=== PATIENT | female | born 1940 | race Caucasian/White ===

== ENCOUNTER 2020-05-11 19:49 | IRF | payer MEDICARE, SELFPAY ==
--- NOTE | ~2020-05-11 | US_ITS ---
EXAMINATION: US venous doppler LE EXAM DATE: 05/15/2020 13:34 INDICATION: Swelling, pain in legs. TECHNIQUE: Multiple grayscale, color flow and Doppler images of the lower extremity deep venous syste ms bilaterally were obtained and reviewed. There is no prior study for comparison. FINDINGS: Right side: The right common femoral, femoral and profunda veins demonstrate normal color flow, respi ratory variation, augmentation and compressibility. Compressibility, color flow confirmed within the right popliteal, posterior tibial, peroneal, and greater saphenous veins. Left side: The left common femoral, femoral and profunda veins demonstrate normal color flow, respira tory variation, augmentation and compressibility. Compressibility, color flow confirmed within the l eft popliteal, posterior tibial, peroneal, and greater saphenous veins. IMPRESSION: 1. No lower extremity deep venous thrombosis bilaterally. Reviewed, dictated and finalized at location B.
[2020-05-11 17:46] VITALS: BP 147/84; PULSE 123; RESP 24; TEMP 37.2; O2SAT 100; BMI 36.2
--- NOTE | 2020-05-11 18:04 | ADMGEN ---
This patient, Lynette Gamez, was admitted to [facility] Room 218-01. Patient/family oriented to hospital policies and general routines including ID bracelet, bed and alarms, visiting hours, pain management, procedures, bathroom and other care routines, personal items, smoking policy, room service/diet, and visiting hours. Valuables list has been completed. Information on how to activate the Rapid Response Team has been discussed. Patient/Family are encouraged to report perceived risks to care and to ask questions if they do not understand what they are told or what they should do.
[2020-05-11 21:08] VITALS: PULSE 98
[2020-05-11] MEDS: carvediloL 12.5 MG TABLET PO (21:08)
[2020-05-11 22:00] VITALS: BP 151/69; PULSE 110; RESP 18; TEMP 37.2; O2SAT 95
[2020-05-12 04:49] LABS: Basophils Percent Auto 0.4 % (0.2-1.2); Eosinophils Absolute Auto 0.1 K/mm3 (0-0.3); Eosinophils Percent Auto 0.9 % (0-4.4); Hematocrit 33.1 % (37.0-47.0); Hemoglobin 10.4 g/dL (12.0-15.0); Immature Granulocyte Absolute 0.03 K/mm3 (0.00-0.031); Immature Granulocyte Percent A 0.4 % (0-0.5); Lymphocytes Absolute Auto 0.97 K/mm3 (0.9-3.2); Lymphocytes Percent Auto 12.1 % (18.3-44.2); Mean Corpuscular HGB Conc 31.4 g/dl (32-36); Mean Corpuscular Hemoglobin 26.6 pg (26-34); Mean Corpuscular Volume 84.7 fl (80-100); Monocytes Percent Auto 12.3 % (2.6-8.5); Neutrophils Absolute Auto 5.9 K/mm3 (1.3-6.7); Neutrophils Percent Auto 73.9 % (45.5-73.1); Platelet Count Result 153 k/mm3 (150-375); Red Blood Count 3.91 M/mm3 (4.2-5.4); Red Cell Distribution Width 15.7 % (11.5-14.5)
[2020-05-12 05:00] LABS: Anion Gap 5 mmol/L (8-16); Blood Urea Nitrogen 23 mg/dL (7-17); Calcium 8.2 mg/dL (8.4-10.2); Carbon Dioxide 31 mmol/L (22-30); Chloride 98 mmol/L (98-107); Estimated CRCL calculation 58 ml/min; Estimated Glomerular Filt Rate > 60; Glucose 115 mg/dL (65-105); Potassium 3.8 mmol/L (3.4-5.0); Sodium 134 mmol/L (137-145)
[2020-05-12 06:00] VITALS: BP 153/91; PULSE 104; RESP 20; TEMP 36.7; O2SAT 92
[2020-05-12 09:33] VITALS: PULSE 96
[2020-05-12] MEDS: APIXABAN 5 MG TABLET PO ×2 (09:33→17:21)
[2020-05-12] MEDS: FUROSEMIDE 40 MG TABLET PO (09:33)
[2020-05-12] MEDS: LOSARTAN POTASSIUM 25 MG TABLET PO (09:33)
[2020-05-12] MEDS: POTASSIUM CHLORIDE 20 MEQ TABLET.ER PO (09:33)
[2020-05-12] MEDS: carvediloL 12.5 MG TABLET PO ×2 (09:33→20:10)
--- NOTE | 2020-05-12 11:30 | WPDREHABHP ---
H&P: HPI History of Present Illness Date/Time: 05/12/20 14:02 Chief complaint: acute chf exac Narrative: Lynette Gamez is a 79 year old female HISTORY OF PRESENT ILLNESS: The patient's primary rehab impairment category is 14 - cardiac The etiologic diagnosis is acute congestive heart failure I saw this patient [id number] on May 12, 2020 at 11:00 a.m. The patient is a 79-year-old woman who has not been evaluated by a physician over 50 years with no recorded past medical history. The patient presented to [facility] emergency department on May 06, 2020 with complaints of shortness of breath orthopnea and worsening bilateral lower extremity edema 3+ pitting edema. Lab work revealed sodium 129 WBC 43874 alk-phos 138 AST 41 bilirubin 1.4 and BNP 10 40. She was found to be in AFib with rapid ventricular response with heart rate in the 160s a chest x-ray showed cardiomegaly with pulmonary densities the appearance is consistent with congestive heart failure and pulmonary edema. The patient was placed on IV Cardizem Lasix and heparin drip. Cardiology was consulted and she responded well to IV diuresis. The patient had an unresponsive episode May 09 while sitting in the chair. The head CT showed no evidence of an acute intracranial process. The attending provider attributed the episode to a TIA. The patient complained of pain and decreased mobility in her right knee which he still does. The patient any x-ray showed severe degenerative changes and arthritis. The patient required physician monitoring for hyponatremia elevated liver enzymes fluid volume new medication management and atrial fibrillation. The atrial fibrillation is currently controlled with carvedilol. The patient will be discharged T RC and 5 milligram of Eliquis b.i.d. for the prevention of a stroke/DVT prophylaxis Head time of this examination the patient does have a what looks like a little cellulitis at the antecubital fossa of the left upper extremity and what sounds like a looks like a resolving lower extremity edema due to congestive heart failure The patient has not traveled outside the [place] are had contact with someone who is ill that has traveled outside the [place] in the past 21 days. Patient has not traveled to an area of the [place] that is experiencing no transmission of the Coronavirus and has not had close personal contact with anyone that has. The patient does not have a fever. The patient is not experiencing lower extremity illness symptoms. Therapy was initiated at the acute care facility and the patient transferred to us from [facility] on May 11, 2020 FALLS OR SURGERIES: The patient has had no major surgeries in the 100 days prior to admission. They had no falls in the past year. They had no falls with injury in the past year. PAST MEDICAL HISTORY: the patient has not seen a physician for over half a century PAST SURGICAL HISTORY: none SOCIAL HISTORY: [] the patient is and lives alone. The patient lives in a one-story home with 3 to 4 steps to enter. She was independent with all ADLs, IADLs LEs, mobility without assistive device, and driving. She would like to return home immediately or independently. She has good support from the family members multiple and her point of contact is her daughter Rose freeman FAMILY HISTORY: mother had a history of hypertension and stroke. Father had emphysema, COPD and heart failure PRIOR LEVEL OF FUNCTION: Eating was INDEPENDENT Oral Care was INDEPENDENT Toileting Hygiene was INDEPENDENT Shower/Bathing was INDEPENDENT Upper Body Dressing was INDEPENDENT Lower Body Dressing was INDEPENDENT Donning/[place] Footwear was INDEPENDENT Rolling Left and Right was INDEPENDENT Sit to Lying was INDEPENDENT Lying to Sitting was INDEPENDENT Sit to Stand was INDEPENDENT Bed to Chair Transfers was INDEPENDENT Toilet Transfers was INDEPENDENT Walking was
[2020-05-12 12:55] VITALS: BMI 36.2
[2020-05-12 14:00] VITALS: BP 146/78; PULSE 94; RESP 18; TEMP 36.5; O2SAT 97
[2020-05-12] MEDS: SIMETHICONE 80 MG TAB.CHEW PO ×3 (15:47→20:10)
[2020-05-12 20:10] VITALS: PULSE 76
[2020-05-12] MEDS: TOLNAFTATE 1% POWDER 45 GM BTL 1 APPLIC TOPICAL (20:12)
[2020-05-12 22:00] VITALS: BP 164/88; PULSE 97; RESP 20; TEMP 36.9; O2SAT 100
[2020-05-13] VITALS (7 sets, daily range): BP systolic 107–161; BP diastolic 61–98; PULSE 70–113; RESP 18–22; TEMP 36–36.7; O2SAT 92–96
[2020-05-13] MEDS: APIXABAN 5 MG TABLET PO ×2 (08:56→17:19)
[2020-05-13] MEDS: POTASSIUM CHLORIDE 20 MEQ TABLET.ER PO (08:56)
[2020-05-13] MEDS: FUROSEMIDE 40 MG TABLET PO (08:56)
[2020-05-13] MEDS: LOSARTAN POTASSIUM 25 MG TABLET PO (08:56)
[2020-05-13] MEDS: carvediloL 12.5 MG TABLET PO ×2 (08:56→22:07)
[2020-05-13] MEDS: TOLNAFTATE 1% POWDER 45 GM BTL 1 APPLIC TOPICAL ×2 (08:57→22:07)
[2020-05-13] MEDS: SIMETHICONE 80 MG TAB.CHEW PO ×4 (08:57→22:07)
--- NOTE | 2020-05-13 10:37 | RPD ---
INDIVIDUALIZED PLAN OF CARE FOR Lynette Gamez Brief Synthesis of Pre-Admission Screen, Post-Admission Evaluation and Therapy Evaluations: The patient presents to rehab with acute congestive heart failure. Comorbidities include hypertension, new onset of rapid atrial fibrillation, pulmonary edema, EF 25-30%leukocytosis, hyponatremia, bilateral lower extremity pitting +edema, elevated liver enzymes, hepatic congestion, orthopenia, and right knee pain. The complexity of the patient's medical management, nursing, and therapy needs require an inpatient rehab hospital stay with a physician-led interdisciplinary team approach. The patient?s needs will be best met in an intensive program vs. at a lower level of care. The patient requires physician services for medical oversight and coordination of care. The patient requires physician monitoring for hyponatremia, elevated liver enzymes, fluid volume, new medication management and atrial fibrillation. The patient requires nursing services for anticoagulation therapy, medication management and education, pressure relief and skin care management, monitoring of labs, bowel and bladder training, and fall/safety precautions. Deficits include:ADLs, Balance, Endurance, Family Training/Education, Mobility, Pain Management, ROM, Safety, Strength, and Transfers Meat Process Worker/Case Management for: Discharge Planning and Patient/Family Counseling Physical Therapy: 5 days per week for 90 minutes. Treatments may include: Therapeutic Exercise, Gait Training, Neuromuscular Re-education, Transfer Training, Community Reintegration, Bed Mobility, Patient/Family Education, Wheelchair Mobility Group Therapy/Concurrent Therapy Rationales: -Improve attention span during functional activities in a distracted environment. -Enhance problem solving and/or adequate judgment skills during functional activities in a distracted environment. -Promote increased safety awareness in a distracted environment to reduce fall risk with functional tasks, transfers, and ambulation to allow a more safe, self-sufficient return to the home environment. -Improve dynamic balance skills to promote safety and independence with functional activities in a distracted environment for maximum gain. Occupational Therapy: 5 days per week for 90 minutes. Treatments may include: Therapeutic Exercise, Therapeutic Activity, Cognitive Training, Self-Care Transfer Training, Community Reintegration, Home Management, Patient/Family Education, Wheelchair Mobility Training, Energy Conservation Training Group Therapy/Concurrent Therapy Rationales: -Allow therapist to observe and teach generalization and carry-over of skills learned in individual therapy. -Enhance problem solving and sequencing skills during therapeutic activities in a distracted environment. -Promote increased safety awareness in a realistic setting to reduce fall risk with functional tasks due to visual and verbal distractions. -Increase functional level with ADLs, ADL transfers and use of adaptive equipment through therapeutic activities with others while promoting safety to allow a more safe, self-sufficient return home. Medical Prognosis: Good Anticipated Length of Stay: 12 days Rehab Goals: Eating Goal: 06-Independent Oral Hygiene Goal: 06-Independent Toileting Hygiene Goal: 06-Independent Shower/Bathe Self Goal: 06-Independent Upper Body Dressing Goal: 06-Independent Lower Body Dressing Goal: 06-Independent Putting On/Taking Off Footwear Goal: 06-Independent Rolling Left and Right Goal: 06-Independent Sit to Lying Goal: 06-Independent Lying to Sitting on Side of Bed Goal: 06-Independent Sit to Stand Goal: 06-Independent Chair/Uvh-ow-Pegrw Transfer Goal: 06-Independent Toilet Transfer Goal: 06-Independent Car Transfer Goal: 06-Independent Walk 10' Goal: 06-Independent Walk 50' with Two Turns Goal: 06-Independent Walk 150' Goal: 06-Independent Walk 10' on Uneven Surface Goal: 06-Independent 1 Step (C
[2020-05-13] MEDS: ACETAMINOPHEN 500 MG TABLET 1000 MG PO (11:04)
--- NOTE | 2020-05-13 11:33 | WPDNEURORHBP ---
Subjective Date/time seen: 05/13/20 11:33 Interval history: this 79-year-old who has not seen a physician until the recent hospitalization at [place] for decades is here because of acute congestive heart failure and also found to have atrial fibrillation for which she is Eliquis she is doing fairly well the cellulitic area at the left antecubital fossa looks clean the lower extremity swelling remains stable she denies any headache nausea vomiting chest pain shortness of breath fever chills sore throat Review of Systems Review of Systems: All systems reviewed & are unremarkable except as noted in HPI and below Functional Status Ambulation Ability Ability to Ambulate 10 Feet: Contact Guard Ability to Ambulate 50 Feet With 2 Turns: Contact Guard Ability to Ambulate 150 Feet: Contact Guard Ambulation Assistive Devices: Walker, Wheeled Transfers Ability Ability to Transfer In/Out of Chair: Minimum Assistance X 1 Exam Const: General: comfortable and no acute distress HENMT: General nose exam: Normal nares present Mouth: Yes moist mucous membranes Eyes: General: appearance normal, both eyes and all related structures Neck: Neck: supple and no JVD Resp: Effort & Inspection: normal respiratory effort Auscultation: clear to auscultation bilaterally Cardio: Rate: regular rate Rhythm: regular rhythm GI: GI Palp: Yes Soft to palpation Auscultation: normal bowel sounds Skin: General skin exam: normal color and no rashes or lesions noted Neuro: Other: patient is awake and alert well oriented and apart from the generalized weakness related to the diagnosis of acute congestive heart failure she does not have any lateralizing focal motor deficit she is needing assistance in the all the activities of daily living Extrem: Other: 2+ edema of the lower extremities Psych: Mental Status: mental status grossly normal Objective Data Vital Signs Vital Signs: Vital Signs - 24 hr 05/12/20 14:00 05/12/20 20:10 05/12/20 22:00 Temperature 36.5 C 36.9 C Pulse Rate 94 76 97 Respiratory Rate 18 20 Blood Pressure 146/78 H 164/88 H Pulse Oximetry 97 100 05/13/20 05:45 05/13/20 08:56 Temperature 36.6 C Pulse Rate 109 H 109 H Respiratory Rate 22 H Blood Pressure 161/98 H Pulse Oximetry 92 Intake/Output Intake/Output: Intake & Output 05/10/20 05/11/20 05/12/20 05/13/20 23:59 23:59 23:59 23:59 Intake Total 480 240 Balance 480 240 Meds/Results Medications: Active Medications Generic Name Dose Route Start Last Admin Trade Name Konstantin PRN Reason Stop Dose Admin Acetaminophen 1,000 mg 05/13/20 10:17 05/13/20 11:04 Tylenol Tablet PO 1,000 mg Q6H PRN Administration Pain Apixaban 5 mg 05/12/20 09:00 05/13/20 08:56 Eliquis PO 5 mg BID YAEL Administration Carvedilol 12.5 mg 05/11/20 21:00 05/13/20 08:56 Coreg PO 12.5 mg Q12HR YAEL Administration Furosemide 40 mg 05/12/20 09:00 05/13/20 08:56 Lasix Tablet PO 40 mg DAILY YAEL Administration Levofloxacin 250 mg 05/13/20 09:00 05/13/20 08:56 Levaquin Tab PO 05/18/20 09:01 250 mg DAILY YAEL Administration Losartan Potassium 25 mg 05/12/20 09:00 05/13/20 08:56 Cozaar PO 25 mg DAILY YAEL Administration Miconazole Nitrate 1 applic 05/12/20 21:00 05/13/20 08:56 Aloe [place] TOPICAL 1 applic Q12HR YAEL Administration Potassium Chloride 20 meq 05/12/20 09:00 05/13/20 08:56 Kcl Tablet PO 20 meq DAILY YAEL Administration Simethicone 80 mg 05/12/20 13:00 05/13/20 08:57 Mylicon PO 80 mg QID YAEL Administration Tolnaftate 1 applic 05/12/20 21:00 05/13/20 08:57 Tolnaftate 1% Powder TOPICAL 1 applic Q12HR YAEL Administration Progress Note: A&P Assessment and Plan (1) TIA (transient ischemic attack): Code(s): G45.9 - Transient cerebral ischemic attack, unspecified Status: Acute (2) Debility: Code(s): R53.81 - Other malaise Stat
[2020-05-14 05:31] LABS: Potassium 3.7 mmol/L (3.4-5.0)
[2020-05-14 06:00] VITALS: BP 145/93; PULSE 99; RESP 20; TEMP 36.7; O2SAT 93
[2020-05-14] MEDS: ACETAMINOPHEN 500 MG TABLET 1000 MG PO ×2 (09:05→18:39)
[2020-05-14 09:06] VITALS: PULSE 99
[2020-05-14] MEDS: carvediloL 12.5 MG TABLET PO ×2 (09:06→21:12)
[2020-05-14] MEDS: APIXABAN 5 MG TABLET PO ×2 (09:06→18:37)
[2020-05-14] MEDS: SIMETHICONE 80 MG TAB.CHEW PO ×4 (09:06→21:12)
[2020-05-14] MEDS: FUROSEMIDE 40 MG TABLET PO (09:07)
[2020-05-14] MEDS: POTASSIUM CHLORIDE 20 MEQ TABLET.ER PO (09:07)
[2020-05-14] MEDS: TOLNAFTATE 1% POWDER 45 GM BTL 1 APPLIC TOPICAL ×2 (09:07→21:12)
[2020-05-14] MEDS: LOSARTAN POTASSIUM 25 MG TABLET PO (09:07)
--- NOTE | 2020-05-14 12:54 | PCNFU ---
Nutrition Follow-Up Complete: Predicted suboptimal oral intake related to poor appetite as evidenced by patient statements and recorded intake of 20%. Patient to consume 50% of meals/supplements or greater. Goal met: Patient is consuming 100% of most meals, following a Heart Healthy diet. Patient is gaining energy and regularity in appetite and intake. Patient requested decrease in protein supplement, Ensure, and benefiting from more normalized stool pattern. Ensure will remain available to her upon request, but no longer delivered with every meal. Furthermore, she demonstrates interest and motivation to continue managing and implementing beneficial dietary changes. Last recorded weight is 95.8 kg. Recommend obtaining new weight. Bowel Motility: Normal - BM x 1 per nursing flowsheet. Labs Reviewed: K+ WNL - no other new labs Meds Noted: Lasix, Levaquin, Mylicon, Kcl Tablet, Coreg, Cozaar Additional Notes: Maceration to skin folds, but no pressure ulcers Follow up in 5 days.
--- NOTE | 2020-05-14 13:41 | PCNSR ---
On 05/14/20, the student, Thais Cervantes, provided care and completed [facility] documentation on this patient. I have reviewed the student's documentation and agree with the findings.
[2020-05-14 14:00] VITALS: BP 153/84; PULSE 102; RESP 20; TEMP 36.8; O2SAT 97
[2020-05-14 20:00] VITALS: O2SAT 99
[2020-05-14 20:52] VITALS: BP 133/88; PULSE 97; RESP 14; TEMP 37; O2SAT 99
[2020-05-14 21:12] VITALS: PULSE 66
[2020-05-15 06:00] VITALS: BP 150/88; PULSE 114; RESP 18; TEMP 36.8; O2SAT 99
--- NOTE | 2020-05-15 07:55 | PCPTNOTE ---
Lynette Gamez was evaluated for a wheeled walker on 05/15/2020 by this physical therapist assistant football coach. The wheeled walker will resolve patient's mobility limitations and will be used for ADL's within the home. The patient can safely use the wheeled walker. ?The wheeled walker will resolve the patient?s mobility deficits, including decreased endurance and strength.
[2020-05-15 08:30] VITALS: PULSE 112; PULSE 130; O2SAT 96; O2SAT 97
[2020-05-15] MEDS: ACETAMINOPHEN 500 MG TABLET 1000 MG PO (08:57)
[2020-05-15 08:58] VITALS: PULSE 114
[2020-05-15] MEDS: carvediloL 12.5 MG TABLET PO ×2 (08:58→20:04)
[2020-05-15] MEDS: APIXABAN 5 MG TABLET PO ×2 (08:58→17:23)
[2020-05-15] MEDS: DOCUSATE SODIUM 100 MG CAPSULE PO ×2 (08:59→20:04)
[2020-05-15] MEDS: FUROSEMIDE 40 MG TABLET PO (08:59)
[2020-05-15] MEDS: POTASSIUM CHLORIDE 20 MEQ TABLET.ER PO (09:00)
[2020-05-15] MEDS: LOSARTAN POTASSIUM 25 MG TABLET PO (09:00)
[2020-05-15] MEDS: SIMETHICONE 80 MG TAB.CHEW PO ×4 (09:00→21:29)
--- NOTE | 2020-05-15 11:12 | WPDNEURORHBP ---
Subjective Date/time seen: 05/15/20 11:12 Interval history: this 79-year-old woman is here because of acute congestive heart failure and the atrial fibrillation recently diagnosed her swelling of the legs is bothering her and she complains of some discomfort pain although on the other hand she is on apixaban and also Lasix she denies any headache nausea vomiting chest pain shortness of breath fever chills sore throat Review of Systems Review of Systems: All systems reviewed & are unremarkable except as noted in HPI and below Functional Status Ambulation Ability Ability to Ambulate 10 Feet: Contact Guard Ability to Ambulate 50 Feet With 2 Turns: Contact Guard Ability to Ambulate 150 Feet: Contact Guard Ambulation Assistive Devices: Walker, Wheeled Transfers Ability Ability to Transfer In/Out of Chair: Minimum Assistance X 1 Exam Const: General: comfortable and no acute distress HENMT: General nose exam: Normal nares present Mouth: Yes moist mucous membranes Eyes: General: appearance normal, both eyes and all related structures Neck: Neck: supple and no JVD Resp: Effort & Inspection: normal respiratory effort Auscultation: clear to auscultation bilaterally Cardio: Rate: regular rate Rhythm: regular rhythm GI: GI Palp: Yes Soft to palpation Auscultation: normal bowel sounds Skin: General skin exam: normal color and no rashes or lesions noted Neuro: Other: patient remains awake alert well oriented in time place and person with generalized weakness needing assistance in the activities of daily living Extrem: Other: bilateral lower extremity swelling and some tenderness in the whole leg raising the possibility of a DVT Psych: Mental Status: mental status grossly normal Objective Data Vital Signs Vital Signs: Vital Signs - 24 hr 05/14/20 14:00 05/14/20 20:00 05/14/20 20:52 Temperature 36.8 C 37.0 C Pulse Rate 102 H 97 Pulse Rate [With Activity During Therapy Session] Respiratory Rate 20 14 Blood Pressure 153/84 H 133/88 Pulse Oximetry 97 99 99 Pulse Oximetry [With Activity During Therapy Session] 05/14/20 21:12 05/15/20 06:00 05/15/20 08:30 Temperature 36.8 C Pulse Rate 66 114 H 112 H Pulse Rate [With Activity During Therapy Session] 130 H Respiratory Rate 18 Blood Pressure 150/88 H Pulse Oximetry 99 96 Pulse Oximetry [With Activity During Therapy Session] 97 05/15/20 08:58 Temperature Pulse Rate 114 H Pulse Rate [With Activity During Therapy Session] Respiratory Rate Blood Pressure Pulse Oximetry Pulse Oximetry [With Activity During Therapy Session] Intake/Output Intake/Output: Intake & Output 05/12/20 05/13/20 05/14/20 05/15/20 23:59 23:59 23:59 23:59 Intake Total 480 720 720 240 Balance 480 720 720 240 Meds/Results Medications: Active Medications Generic Name Dose Route Start Last Admin Trade Name Freq PRN Reason Stop Dose Admin Acetaminophen 1,000 mg 05/13/20 10:17 05/15/20 08:57 Tylenol Tablet PO 1,000 mg Q6H PRN Administration Pain Apixaban 5 mg 05/12/20 09:00 05/15/20 08:58 Eliquis PO 5 mg BID YAEL Administration Carvedilol 12.5 mg 05/11/20 21:00 05/15/20 08:58 Coreg PO 12.5 mg Q12HR YAEL Administration Docusate Sodium 100 mg 05/15/20 09:00 05/15/20 08:59 Colace Capsule PO 100 mg Q12HR YAEL Administration Furosemide 40 mg 05/12/20 09:00 05/15/20 08:59 Lasix Tablet PO 40 mg DAILY YAEL Administration Levofloxacin 250 mg 05/13/20 09:00 05/15/20 08:59 Levaquin Tab PO 05/18/20 09:01 250 mg DAILY YAEL Administration Loratadine 10 mg 05/15/20 09:00 Claritin PO QAM YAEL Losartan Potassium 25 mg 05/12/20 09:00 05/15/20 09:00 Cozaar PO 25 mg DAILY YAEL Administration Miconazole Nitrate 1 applic 05/12/20 21:00 05/14/20 21:12 Aloe [place] TOPICAL 1 applic Q12HR YAEL Administration Potassium Chloride 20 meq 05/12/20 09:00 05/15/20 09:00 Delvin
[2020-05-15] MEDS: LORATADINE 10 MG TABLET PO (12:04)
[2020-05-15] MEDS: TOLNAFTATE 1% POWDER 45 GM BTL 1 APPLIC TOPICAL ×2 (12:05→21:29)
[2020-05-15 14:00] VITALS: BP 142/82; PULSE 94; RESP 20; TEMP 36.5; O2SAT 100
[2020-05-15 20:04] VITALS: PULSE 88
[2020-05-15 22:00] VITALS: BP 121/66; PULSE 91; RESP 18; TEMP 36.6; O2SAT 99
[2020-05-16 04:57] LABS: Potassium 3.9 mmol/L (3.4-5.0)
[2020-05-16 06:00] VITALS: BP 149/87; PULSE 106; RESP 18; TEMP 36.4; O2SAT 95
[2020-05-16 08:39] VITALS: PULSE 106
[2020-05-16] MEDS: POTASSIUM CHLORIDE 20 MEQ TABLET.ER PO (08:39)
[2020-05-16] MEDS: LOSARTAN POTASSIUM 25 MG TABLET PO (08:39)
[2020-05-16] MEDS: SIMETHICONE 80 MG TAB.CHEW PO ×4 (08:39→20:09)
[2020-05-16] MEDS: APIXABAN 5 MG TABLET PO ×2 (08:39→17:27)
[2020-05-16] MEDS: LORATADINE 10 MG TABLET PO (08:39)
[2020-05-16] MEDS: FUROSEMIDE 40 MG TABLET PO (08:39)
[2020-05-16] MEDS: carvediloL 12.5 MG TABLET PO ×2 (08:39→20:06)
[2020-05-16] MEDS: DOCUSATE SODIUM 100 MG CAPSULE PO ×2 (08:39→20:06)
[2020-05-16] MEDS: ACETAMINOPHEN 500 MG TABLET 1000 MG PO ×2 (08:43→20:07)
[2020-05-16] MEDS: TOLNAFTATE 1% POWDER 45 GM BTL 1 APPLIC TOPICAL ×2 (11:30→20:09)
--- NOTE | 2020-05-16 11:50 | WPDNEURORHBP ---
Subjective Date/time seen: 79 years old lady with ongoing history of 1. Congestive heart failure 2. Atrial fibrillation number threes edema of the lower extremities but most recent Doppler study negative for DVT. Remains involved in the physical therapy and occupational therapy. Review of Systems Review of Systems: All systems reviewed & are unremarkable except as noted in HPI and below Functional Status Ambulation Ability Ability to Ambulate 10 Feet: Standby Assistance Ability to Ambulate 50 Feet With 2 Turns: Standby Assistance Ability to Ambulate 150 Feet: Contact Guard Ambulation Assistive Devices: Walker, Wheeled Transfers Ability Ability to Transfer In/Out of Chair: Minimum Assistance X 1 Exam Narrative: Exam Narrative: Examination reveals her to be awake alert cooperative in no obvious acute distress. Ear nose throat examination normal with normal mucous membranes without any drainage. Eyes normal. Neck is supple with no cervical bruit no thyromegaly no lymphadenopathy and normal range of motion. Heart rate irregular. Lungs clear to auscultation with no crepitations or rhonchi. Abdomen is soft with no organomegaly and normal bowel sounds. His skin normal. Neurologically she is awake alert oriented in times place and person with generalized weakness requiring the assistance in the activities but otherwise symmetrical sluggish deep tendon reflexes downgoing plantar responses and normal mental status Objective Data Vital Signs Vital Signs: Vital Signs - 24 hr 05/15/20 14:00 05/15/20 20:04 05/15/20 22:00 Temperature 36.5 C 36.6 C Pulse Rate 94 88 91 Respiratory Rate 20 18 Blood Pressure 142/82 H 121/66 Pulse Oximetry 100 99 05/16/20 06:00 05/16/20 08:39 Temperature 36.4 C L Pulse Rate 106 H 106 H Respiratory Rate 18 Blood Pressure 149/87 H Pulse Oximetry 95 Intake/Output Intake/Output: Intake & Output 05/13/20 05/14/20 05/15/20 05/16/20 23:59 23:59 23:59 23:59 Intake Total 720 720 600 240 Balance 720 720 600 240 Meds/Results Medications: Active Medications Generic Name Dose Route Start Last Admin Trade Name Freq PRN Reason Stop Dose Admin Acetaminophen 1,000 mg 05/13/20 10:17 05/16/20 08:43 Tylenol Tablet PO 1,000 mg Q6H PRN Administration Pain Apixaban 5 mg 05/12/20 09:00 05/16/20 08:39 Eliquis PO 5 mg BID YAEL Administration Carvedilol 12.5 mg 05/11/20 21:00 05/16/20 08:39 Coreg PO 12.5 mg Q12HR YAEL Administration Docusate Sodium 100 mg 05/15/20 09:00 05/16/20 08:39 Colace Capsule PO 100 mg Q12HR YAEL Administration Furosemide 40 mg 05/12/20 09:00 05/16/20 08:39 Lasix Tablet PO 40 mg DAILY YAEL Administration Levofloxacin 250 mg 05/13/20 09:00 05/16/20 08:39 Levaquin Tab PO 05/18/20 09:01 250 mg DAILY YAEL Administration Loratadine 10 mg 05/15/20 09:00 05/16/20 08:39 Claritin PO 10 mg QAM YAEL Administration Losartan Potassium 25 mg 05/12/20 09:00 05/16/20 08:39 Cozaar PO 25 mg DAILY YAEL Administration Miconazole Nitrate 1 applic 05/12/20 21:00 05/15/20 20:04 Aloe [place] TOPICAL 1 applic Q12HR YAEL Administration Potassium Chloride 20 meq 05/12/20 09:00 05/16/20 08:39 Kcl Tablet PO 20 meq DAILY YAEL Administration Simethicone 80 mg 05/12/20 13:00 05/16/20 08:39 Mylicon PO 80 mg QID YAEL Administration Tolnaftate 1 applic 05/12/20 21:00 05/15/20 21:29 Tolnaftate 1% Powder TOPICAL 1 applic Q12HR YAEL Administration Radiology Results: ITS Impressions Venous Doppler Study 05/15/20 13:39 IMPRESSION: 1. No lower extremity deep venous thrombosis bilaterally. Labs Labs: Laboratory Results - last 24 hr 05/16/20 04:20 Potassium 3.9 Progress Note: A&P Assessment and Plan (1) Lower extremity edema: Code(s): R60.0 - Localized edema Status: Acute (2) TIA (transient ischemic attack): Code(
[2020-05-16 14:00] VITALS: BP 129/56; PULSE 104; RESP 18; TEMP 36.6; O2SAT 96
[2020-05-16 20:06] VITALS: PULSE 98
[2020-05-16 21:45] VITALS: BP 113/53; PULSE 95; RESP 18; TEMP 36.8; O2SAT 97
[2020-05-17 05:24] VITALS: BP 137/85; PULSE 97; RESP 18; TEMP 36.7; O2SAT 98
[2020-05-17 07:56] VITALS: PULSE 96
[2020-05-17] MEDS: APIXABAN 5 MG TABLET PO ×2 (07:56→17:40)
[2020-05-17] MEDS: DOCUSATE SODIUM 100 MG CAPSULE PO ×2 (07:56→21:14)
[2020-05-17] MEDS: carvediloL 12.5 MG TABLET PO ×2 (07:56→21:13)
[2020-05-17] MEDS: LORATADINE 10 MG TABLET PO (07:57)
[2020-05-17] MEDS: FUROSEMIDE 40 MG TABLET PO (07:57)
[2020-05-17] MEDS: SIMETHICONE 80 MG TAB.CHEW PO ×4 (07:57→21:13)
[2020-05-17] MEDS: LOSARTAN POTASSIUM 25 MG TABLET PO (07:57)
[2020-05-17] MEDS: POTASSIUM CHLORIDE 20 MEQ TABLET.ER PO (07:57)
[2020-05-17] MEDS: TOLNAFTATE 1% POWDER 45 GM BTL 1 APPLIC TOPICAL ×2 (07:59→21:14)
[2020-05-17] MEDS: ACETAMINOPHEN 500 MG TABLET 1000 MG PO (08:25)
[2020-05-17 14:00] VITALS: BP 127/49; PULSE 100; RESP 16; TEMP 36.8; O2SAT 99
[2020-05-17 21:13] VITALS: PULSE 105
[2020-05-17 22:00] VITALS: BP 138/80; PULSE 114; RESP 18; TEMP 36.8; O2SAT 98
[2020-05-18 05:24] LABS: Potassium 4.2 mmol/L (3.4-5.0)
[2020-05-18 06:00] VITALS: BP 146/95; PULSE 105; RESP 16; TEMP 36.7; O2SAT 98
[2020-05-18] MEDS: APIXABAN 5 MG TABLET PO ×2 (07:40→17:38)
[2020-05-18 07:41] VITALS: PULSE 82
[2020-05-18] MEDS: LORATADINE 10 MG TABLET PO (07:41)
[2020-05-18] MEDS: POTASSIUM CHLORIDE 20 MEQ TABLET.ER PO (07:41)
[2020-05-18] MEDS: DOCUSATE SODIUM 100 MG CAPSULE PO ×2 (07:41→20:02)
[2020-05-18] MEDS: carvediloL 12.5 MG TABLET PO ×2 (07:41→20:01)
[2020-05-18] MEDS: FUROSEMIDE 40 MG TABLET PO (07:41)
[2020-05-18] MEDS: SIMETHICONE 80 MG TAB.CHEW PO ×4 (07:42→20:01)
[2020-05-18] MEDS: LOSARTAN POTASSIUM 25 MG TABLET PO (07:42)
[2020-05-18] MEDS: TOLNAFTATE 1% POWDER 45 GM BTL 1 APPLIC TOPICAL ×2 (07:45→20:01)
--- NOTE | 2020-05-18 09:53 | WPDNEURORHBP ---
Subjective Date/time seen: 05/18/20 09:53 79 years old lady with ongoing history of 1. Congestive heart failure 2. Atrial fibrillation 3. Edema of the lower extremities with negative DVT on Doppler study continues to be involved in the physical therapy and occupational therapy Review of Systems Review of Systems: All systems reviewed & are unremarkable except as noted in HPI and below Functional Status Ambulation Ability Ability to Ambulate 10 Feet: Independent Ability to Ambulate 50 Feet With 2 Turns: Independent Ability to Ambulate 150 Feet: Contact Guard Ambulation Assistive Devices: Walker, Rollator and Walker, Wheeled Transfers Ability Ability to Transfer In/Out of Chair: Minimum Assistance X 1 Exam Narrative: Exam Narrative: examination reveals her to be awake alert cooperative in no distress ear nose throat examination normal with normal mucous membrane without any drainage eyes normal neck is supple with no cervical bruit no thyromegaly no lymphadenopathy normal range of motion heart is regular lungs clear no crepitations abdomen is soft with no organomegaly nontender normal bowel sounds skin normal neurological is she is awake alert oriented in times place and person to she complains of generalized weakness but there is no focal motor deficit she has sluggish deep tendon reflexes downgoing plantar responses and continues to have normal mental status Objective Data Vital Signs Vital Signs: Vital Signs - 24 hr 05/17/20 14:00 05/17/20 21:13 05/17/20 22:00 Temperature 36.8 C 36.8 C Pulse Rate 100 105 H 114 H Respiratory Rate 16 18 Blood Pressure 127/49 L 138/80 Pulse Oximetry 99 98 05/18/20 06:00 05/18/20 07:41 Temperature 36.7 C Pulse Rate 105 H 82 Respiratory Rate 16 Blood Pressure 146/95 H Pulse Oximetry 98 Intake/Output Intake/Output: Intake & Output 05/15/20 05/16/20 05/17/20 05/18/20 23:59 23:59 23:59 23:59 Intake Total 600 840 720 240 Balance 600 840 720 240 Meds/Results Medications: Active Medications Generic Name Dose Route Start Last Admin Trade Name Freq PRN Reason Stop Dose Admin Acetaminophen 1,000 mg 05/13/20 10:17 05/17/20 08:25 Tylenol Tablet PO 1,000 mg Q6H PRN Administration Pain Apixaban 5 mg 05/12/20 09:00 05/18/20 07:40 Eliquis PO 5 mg BID YAEL Administration Carvedilol 12.5 mg 05/11/20 21:00 05/18/20 07:41 Coreg PO 12.5 mg Q12HR YAEL Administration Docusate Sodium 100 mg 05/15/20 09:00 05/18/20 07:41 Colace Capsule PO 100 mg Q12HR YAEL Administration Furosemide 40 mg 05/12/20 09:00 05/18/20 07:41 Lasix Tablet PO 40 mg DAILY YAEL Administration Loratadine 10 mg 05/15/20 09:00 05/18/20 07:41 Claritin PO 10 mg QAM YAEL Administration Losartan Potassium 25 mg 05/12/20 09:00 05/18/20 07:42 Cozaar PO 25 mg DAILY YAEL Administration Miconazole Nitrate 1 applic 05/12/20 21:00 05/18/20 07:42 Aloe [place] TOPICAL 1 applic Q12HR YAEL Administration Potassium Chloride 20 meq 05/12/20 09:00 05/18/20 07:41 Kcl Tablet PO 20 meq DAILY YAEL Administration Simethicone 80 mg 05/12/20 13:00 05/18/20 07:42 Mylicon PO 80 mg QID YAEL Administration Tolnaftate 1 applic 05/12/20 21:00 05/18/20 07:45 Tolnaftate 1% Powder TOPICAL 1 applic Q12HR YAEL Administration Radiology Results: ITS Impressions Venous Doppler Study 05/15/20 13:39 IMPRESSION: 1. No lower extremity deep venous thrombosis bilaterally. Labs Labs: Laboratory Results - last 24 hr 05/18/20 04:55 Potassium 4.2 Progress Note: A&P Assessment and Plan (1) Lower extremity edema: Code(s): R60.0 - Localized edema Status: Acute (2) TIA (transient ischemic attack): Code(s): G45.9 - Transient cerebral ischemic attack, unspecified Status: Acute (3) Debility: Code(s): R53.81 - Other malaise Status: Acute (4) Cellulitis:
[2020-05-18] MEDS: ACETAMINOPHEN 500 MG TABLET 1000 MG PO ×2 (10:27→20:04)
[2020-05-18 14:00] VITALS: BP 113/69; PULSE 104; RESP 18; TEMP 36.4; O2SAT 95
[2020-05-18 20:01] VITALS: PULSE 104
[2020-05-18 22:00] VITALS: BP 137/80; PULSE 89; RESP 16; TEMP 36.3; O2SAT 94
[2020-05-19 05:34] LABS: Basophils Percent Auto 0.4 % (0.2-1.2); Eosinophils Absolute Auto 0.1 K/mm3 (0-0.3); Eosinophils Percent Auto 2.1 % (0-4.4); Hematocrit 34.4 % (37.0-47.0); Hemoglobin 10.6 g/dL (12.0-15.0); Immature Granulocyte Absolute 0.02 K/mm3 (0.00-0.031); Immature Granulocyte Percent A 0.4 % (0-0.5); Lymphocytes Absolute Auto 0.81 K/mm3 (0.9-3.2); Lymphocytes Percent Auto 17.1 % (18.3-44.2); Mean Corpuscular HGB Conc 30.8 g/dl (32-36); Mean Corpuscular Hemoglobin 26.4 pg (26-34); Mean Corpuscular Volume 85.8 fl (80-100); Mean Platelet Volume 9.9 fl (7.4-10.4); Monocytes Absolute Auto 0.6 K/mm3 (0.1-0.6); Monocytes Percent Auto 13.1 % (2.6-8.5); Neutrophils Absolute Auto 3.2 K/mm3 (1.3-6.7); Neutrophils Percent Auto 66.9 % (45.5-73.1); Platelet Count Result 179 k/mm3 (150-375); Red Blood Count 4.01 M/mm3 (4.2-5.4); Red Cell Distribution Width 16.1 % (11.5-14.5); White Blood Count 4.7 K/mm3 (4.5-10.0)
[2020-05-19 05:56] LABS: Anion Gap 3 mmol/L (8-16); Blood Urea Nitrogen 16 mg/dL (7-17); Calcium 8.5 mg/dL (8.4-10.2); Carbon Dioxide 30 mmol/L (22-30); Chloride 105 mmol/L (98-107); Estimated CRCL calculation 52 ml/min; Estimated Glomerular Filt Rate > 60; Glucose 97 mg/dL (65-105); Potassium 4.2 mmol/L (3.4-5.0); Sodium 138 mmol/L (137-145)
[2020-05-19 06:00] VITALS: BP 136/83; PULSE 92; RESP 22; TEMP 36.1; O2SAT 93
[2020-05-19 07:28] VITALS: PULSE 72
[2020-05-19] MEDS: APIXABAN 5 MG TABLET PO ×2 (07:28→17:24)
[2020-05-19] MEDS: carvediloL 12.5 MG TABLET PO ×2 (07:28→20:53)
[2020-05-19] MEDS: FUROSEMIDE 40 MG TABLET PO (07:30)
[2020-05-19] MEDS: LORATADINE 10 MG TABLET PO (07:30)
[2020-05-19] MEDS: DOCUSATE SODIUM 100 MG CAPSULE PO ×2 (07:30→20:52)
[2020-05-19] MEDS: POTASSIUM CHLORIDE 20 MEQ TABLET.ER PO (07:30)
[2020-05-19] MEDS: LOSARTAN POTASSIUM 25 MG TABLET PO (07:31)
[2020-05-19] MEDS: SIMETHICONE 80 MG TAB.CHEW PO ×4 (07:31→20:52)
[2020-05-19] MEDS: TOLNAFTATE 1% POWDER 45 GM BTL 1 APPLIC TOPICAL ×2 (07:31→20:53)
[2020-05-19] MEDS: ACETAMINOPHEN 500 MG TABLET 1000 MG PO ×2 (11:22→20:53)
--- NOTE | 2020-05-19 13:09 | WPDNEURORHBP ---
Subjective Date/time seen: 05/19/20 13:09 Interval history: this 79-year-old woman is here after having had congestive heart failure and about of atrial fibrillation she is progressing in the rehab very well we had rehab meeting and input from the nurses and the therapist will given to the family member the patient is off oxygen and doing fairly well discharge planning is for tomorrow She denies any headache nausea vomiting chest pain shortness of breath fever chills sore throat Review of Systems Review of Systems: All systems reviewed & are unremarkable except as noted in HPI and below Functional Status Ambulation Ability Ability to Ambulate 10 Feet: Independent Ability to Ambulate 50 Feet With 2 Turns: Independent Ability to Ambulate 150 Feet: Contact Guard Ambulation Assistive Devices: Walker, Wheeled Transfers Ability Ability to Transfer In/Out of Chair: Minimum Assistance X 1 Exam Const: General: comfortable and no acute distress HENMT: General nose exam: Normal nares present Mouth: Yes moist mucous membranes Eyes: General: appearance normal, both eyes and all related structures Neck: Neck: supple and no JVD Resp: Effort & Inspection: normal respiratory effort Auscultation: clear to auscultation bilaterally Cardio: Rate: regular rate Rhythm: regular rhythm GI: GI Palp: Yes Soft to palpation Auscultation: normal bowel sounds Skin: General skin exam: normal color and no rashes or lesions noted Neuro: Other: patient remains awake alert well oriented in time place and person her weakness has improved she is doing very well and ready to discharged tomorrow Extrem: General: normal to inspection Psych: Mental Status: mental status grossly normal Objective Data Vital Signs Vital Signs: Vital Signs - 24 hr 05/18/20 14:00 05/18/20 20:01 05/18/20 22:00 Temperature 36.4 C 36.3 C L Pulse Rate 104 H 104 H 89 Respiratory Rate 18 16 Blood Pressure 113/69 137/80 Pulse Oximetry 95 94 05/19/20 06:00 05/19/20 07:28 Temperature 36.1 C L Pulse Rate 92 72 Respiratory Rate 22 H Blood Pressure 136/83 Pulse Oximetry 93 Intake/Output Intake/Output: Intake & Output 05/16/20 05/17/20 05/18/20 05/19/20 23:59 23:59 23:59 23:59 Intake Total 840 720 840 240 Balance 840 720 840 240 Meds/Results Medications: Active Medications Generic Name Dose Route Start Last Admin Trade Name Konstantin PRN Reason Stop Dose Admin Acetaminophen 1,000 mg 05/13/20 10:17 05/19/20 11:22 Tylenol Tablet PO 1,000 mg Q6H PRN Administration Pain Apixaban 5 mg 05/12/20 09:00 05/19/20 07:28 Eliquis PO 5 mg BID YAEL Administration Carvedilol 12.5 mg 05/11/20 21:00 05/19/20 07:28 Coreg PO 12.5 mg Q12HR YAEL Administration Docusate Sodium 100 mg 05/15/20 09:00 05/19/20 07:30 Colace Capsule PO 100 mg Q12HR YAEL Administration Furosemide 40 mg 05/12/20 09:00 05/19/20 07:30 Lasix Tablet PO 40 mg DAILY YAEL Administration Loratadine 10 mg 05/15/20 09:00 05/19/20 07:30 Claritin PO 10 mg QAM YAEL Administration Losartan Potassium 25 mg 05/12/20 09:00 05/19/20 07:31 Cozaar PO 25 mg DAILY YAEL Administration Miconazole Nitrate 1 applic 05/12/20 21:00 05/19/20 07:31 Aloe [place] TOPICAL 1 applic Q12HR YAEL Administration Potassium Chloride 20 meq 05/12/20 09:00 05/19/20 07:30 Kcl Tablet PO 20 meq DAILY YAEL Administration Simethicone 80 mg 05/12/20 13:00 05/19/20 07:31 Mylicon PO 80 mg QID YAEL Administration Tolnaftate 1 applic 05/12/20 21:00 05/19/20 07:31 Tolnaftate 1% Powder TOPICAL 1 applic Q12HR YAEL Administration Radiology Results: ITS Impressions Venous Doppler Study 05/15/20 13:39 IMPRESSION: 1. No lower extremity deep venous thrombosis bilaterally. Labs Labs: Laboratory Results - last 24 hr 05/19/20 05/19/20 05:22 05:22 WBC 4.7 RBC 4.01 L Hgb 10.6 L Hct 34.4
--- NOTE | 2020-05-19 13:37 | PCDIET ---
Nutrition Follow-Up Complete: Nutrition Diagnosis: Predicted suboptimal oral intake related to poor appetite as evidenced by patient statements and recorded intake of 20%. Nutrition Goal: Patient to consume 50% of meals/supplements or greater. Goal met. Patient consuming 75-100% of most meals on heart healthy diet. Remains able to order Ensure Enlive prn, but feels she is eating well without need for supplements. Last recorded weight is 95.8 kg. Recommend obtaining new weight. Bowel Motility: Last documented BM on 05/17/20. Labs Reviewed: Hgb (10.6), Hct (34.4) Meds Noted: Colace, Lasix, KCl, Mylicon Additional Notes: Multiple areas of maceration noted, but no documented pressure ulcers. Provided patient additional information and Heart Failure Nutrition Therapy handout with RD contact information. Will continue to monitor with same goal. Nutrition Monitoring and Evaluation: Follow up in 7 days.
[2020-05-19 14:00] VITALS: BP 112/62; PULSE 104; RESP 20; TEMP 36.4; O2SAT 96
[2020-05-19 20:53] VITALS: PULSE 104
[2020-05-19 21:59] VITALS: BP 133/83; PULSE 105; RESP 20; TEMP 36.7; O2SAT 96
[2020-05-20 06:00] VITALS: BP 127/72; PULSE 98; RESP 22; TEMP 36.1; O2SAT 97
[2020-05-20 08:57] VITALS: PULSE 96
[2020-05-20] MEDS: LORATADINE 10 MG TABLET PO (08:57)
[2020-05-20] MEDS: LOSARTAN POTASSIUM 25 MG TABLET PO (08:57)
[2020-05-20] MEDS: FUROSEMIDE 40 MG TABLET PO (08:57)
[2020-05-20] MEDS: DOCUSATE SODIUM 100 MG CAPSULE PO (08:57)
[2020-05-20] MEDS: APIXABAN 5 MG TABLET PO (08:57)
[2020-05-20] MEDS: carvediloL 12.5 MG TABLET PO (08:57)
[2020-05-20] MEDS: SIMETHICONE 80 MG TAB.CHEW PO ×2 (08:58→14:10)
[2020-05-20] MEDS: TOLNAFTATE 1% POWDER 45 GM BTL 1 APPLIC TOPICAL (08:58)
[2020-05-20] MEDS: POTASSIUM CHLORIDE 20 MEQ TABLET.ER PO (08:58)
[2020-05-20] MEDS: ACETAMINOPHEN 500 MG TABLET 1000 MG PO (09:00)
[2020-05-20 10:00] VITALS: PULSE 96; RESP 22; O2SAT 97
--- NOTE | 2020-05-22 13:59 | PM.DS ---
DS: Admitting Diagnosis Admitting Diagnosis Admitting Diagnosis: acute chf exac DS: Discharge Diagnosis Discharge Diagnosis (1) Lower extremity edema: Code(s): R60.0 - Localized edema Status: Acute (2) TIA (transient ischemic attack): Code(s): G45.9 - Transient cerebral ischemic attack, unspecified Status: Acute (3) Debility: Code(s): R53.81 - Other malaise Status: Acute (4) Congestive heart failure: Code(s): I50.9 - Heart failure, unspecified Status: Acute DS: Summary Hospital Course Reason for hospitalization: the patient was admitted because of acute congestive heart failure debility weakness associated with that plus the other medical issues mentioned above she received the PT OT medical management and gait training and was able to achieved the following independent measures Hospital Course: eating independent, oral hygiene independent, toileting setup, bathing setup, upper body dressing independent, lower body dressing setup, footwear supervision, rolling in bed independent sitting to lying independent, lying to sitting independent, sit to stand independent, chair transfers dependent, toilet transfers independent, car transfers independent, walking 10 feet independent, walking 50 feet with 2 turns independent, walking 150 feet independent, walking 10 feet uneven surfaces independent, [place] step dependent, 4 steps supervision, 12 steps patient was unable to, picking up objects independent, wheelchair 50 feet independent, wheelchair 150 feet independent, The patient was sent home with the caregiver to take care of her and follow-up with the primary care and also aquatic ecologist Time Spent with Patient Time attestation: Total time spent providing and/or coordinating discharge services: Exam Const: General: comfortable and no acute distress HENMT: General nose exam: Normal nares present Mouth: Yes dry mucous membranes Eyes: General: appearance normal, both eyes and all related structures Neck: Neck: supple and no JVD Resp: Effort & Inspection: normal respiratory effort Auscultation: clear to auscultation bilaterally Cardio: Rate: regular rate Rhythm: regular rhythm GI: GI Palp: Yes Soft to palpation Auscultation: normal bowel sounds Skin: General skin exam: normal color and no rashes or lesions noted Neuro: General: gait normal Motor exam (neuro): 5/5 motor strength present throughout and Normal motor muscle tone present throughout Extrem: Other: decreased edema of the lower extremities Psych: Mental Status: mental status grossly normal Discharge Plan Discharge Attending physician on discharge: Valdemar Rick Discharging Clinician: Valdemar Rick Anticipated Discharge Date/Time: 05/20/20 13:12 Patient Disposition: Home, Self-Care Activity: may shower and no driving Diet: heart healthy Discharge Instructions: follow-up with the primary care physician follow-up with aquatic ecologist Patient Instructions: Antibiotic Form, Apixaban (By mouth), Heart Failure (DC), Pain Management in Older Adults (DC), Low-Sodium Diet (ED) Stand Alone Forms: General Discharge Information Follow-up/Referrals: Cardiology [Other] (Follow up with your Inspector [employer]. call to make an appointment) Discharge Medications: New acetaminophen 500 mg Tablet 1,000 mg PO Q6H PRN (Reason: Pain) Qty: 0 RF: 0 Aloe [place] Antifungal (micon) 2 % Ointment 1 applic topical Q12HR Qty: 1 RF: 0 docusate sodium 100 mg Capsule 100 mg PO Q12HR Qty: 60 RF: 0 tolnaftate 1 % Powder 1 applic topical Q12HR Qty: 1 RF: 0 loratadine 10 mg Tablet 10 mg PO QAM Qty: 3 RF: 0 simethicone 80 mg Tablet,Chewable 80 mg PO QID Qty: 60 RF: 0 Continued furosemide 40 mg Tablet 40 mg PO DAILY Qty: 30 RF: 0 carvedilol 12.5 mg Tablet 12.5 mg PO BID Qty: 60 RF: 0 losartan 25 mg Tablet 25 mg PO DAILY Qty: 30 RF: 0 apixaban 5 mg Tablet 5 mg PO BID Qt
== END 2020-05-20 17:00 | disposition home or self-care (01) | DRG 292 ==
PROVIDERS: Admitting Provider Psychiatry & Neurology Neurology; Visit Provider Psychiatry & Neurology Neurology
DX: I11.0 Hypertensive heart disease with heart failure (principal); G45.9 Transient cerebral ischemic attack, unspecified; L03.114 Cellulitis of left upper limb; I50.9 Heart failure, unspecified; I48.91 Unspecified atrial fibrillation; M17.11 Unilateral primary osteoarthritis, right knee; R60.0 Localized edema; R74.8 Abnormal levels of other serum enzymes; R06.01 Orthopnea
CPT/HCPCS: 36415; 80048; 84132; 85025; 93970; 97110; 97116; 97161; 97165; 97530; 97535; 97542; A9270

== ENCOUNTER 2020-10-28 15:01 | Outpatient (CLI) | payer MEDICARE, SELFPAY | END 2020-10-28 15:02 | disposition home or self-care (01) | LOC: ANHCOVIDVC 15:01 | DX: Z23 Encounter for immunization (principal) | CPT/HCPCS: 0001A; 91300 ==

== ENCOUNTER 2020-11-18 14:58 | Outpatient (CLI) | payer MEDICARE, SELFPAY | END 2020-11-18 14:59 | disposition home or self-care (01) | LOC: ANHCOVIDVC 14:58 | DX: Z23 Encounter for immunization (principal) | CPT/HCPCS: 0002A; 91300 ==